=== PATIENT | female | born 1950 | race Hispanic/Latino ===

== ENCOUNTER → 2024-05-04 | Outpatient (CLI) | payer MEDICARE | END | disposition home or self-care (01) | LOC: SHCH 08:55 | PROVIDERS: ATTEND Internal Medicine Cardiovascular Disease | DX: I34.0 Nonrheumatic mitral (valve) insufficiency (principal); R06.02 Shortness of breath; I10 Essential (primary) hypertension | CPT/HCPCS: 93306; 93356 ==

== ENCOUNTER → 2024-06-23 | Outpatient (CLI) | payer MEDICARE, MEDICAID | END | disposition home or self-care (01) | LOC: SHCH 14:08 | PROVIDERS: ATTEND Internal Medicine Cardiovascular Disease | DX: I87.2 Venous insufficiency (chronic) (peripheral) (principal); I87.1 Compression of vein; I73.9 Peripheral vascular disease, unspecified | CPT/HCPCS: 93925; 93970 ==

== ENCOUNTER 2025-09-09 08:16 | Day surgery (SDC) | payer MEDICARE, MEDICAID ==
[2025-09-06 11:56] LABS: IMMATURE GRANULOCYTE ABSOLUTE 0.03 K/uL (0-1); NUCLEATED RED BLOOD CELLS 0.0 % (0.0-0.19); PLATELET COUNT (AUTO) 232 K/uL (130-400); RED BLOOD CELL COUNT(AUTO) 3.80 MIL/uL (4.00-5.50); RED CELL DISTRIBUTION WIDTH 12.1 % (11.0-15.5); WHITE BLOOD COUNT (AUTO) 6.2 K/uL (4.8-10.8)
[2025-09-06 12:05] LABS: CREATININE 0.6 mg/dL (0.5-1.0); GLOMERULAR FILTR. RATE CALC 95.0 mL/min (>90); GLUCOSE,RANDOM 112.0 mg/dL (70-105); SODIUM SERUM 140.0 mmol/L (136-145); UREA NITROGEN, BLOOD 12.0 mg/dL (7-18)
[2025-09-06 12:10] LABS: INR 0.96 (0.85-1.15)
--- NOTE | 2025-09-06 12:36 | EKG ---
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
[2025-09-06 12:45] VITALS: BP 122/59; PULSE 73; RESP 18; TEMP 97.5
--- NOTE | 2025-09-06 13:23 | HMCIMG ---
EXAM: CR Chest, 1 View. CLINICAL HISTORY: PRE OP COMPARISON: None provided. FINDINGS: LUNGS: The lungs show no infiltrate or other acute finding. PLEURAL SPACES: No pleural effusion or pneumothorax. MEDIASTINUM: The cardiomediastinal silhouette is within normal limits. BONES: No acute osseous abnormality. IMPRESSION: No acute cardiopulmonary pathology is evident. /Hunter
[~2025-09-09] VITALS: Ht 154.9 cm; Wt 53.7 kg
[~2025-09-09 08:16] MED LIST: AMLO-258 PO; ASPI-1197 PO; CALC-1038 PO; GABA-529 PO; LOSA50TA64 PO; MULT-1367 PO
[2025-09-09 08:28] VITALS: BP 144/68; PULSE 75; RESP 18; TEMP 97.9
[2025-09-09] MEDS: 0.9%NACL 1000ML 1,000 ML IV SCH (09:42)
[2025-09-09] MEDS ORDERED: HEParin-NS 1,000 UNIT/500 ML 1,000 ML IV ONE (11:12)
[2025-09-09] MEDS ORDERED: IODIXANOL 320 MG/ML 100 ML VIAL ONE (11:12)
[2025-09-09] MEDS ORDERED: LIDOCAINE HCL 400MG/20ML VIAL ONE (11:12)
[2025-09-09] MEDS ORDERED: MIDAZOLAM HCL 1 MG/ML 2ML VIAL ONE ×2 (11:25→11:49)
--- NOTE | 2025-09-09 12:08 | PRN ---
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 2% lidocaine used for local anesthesia. Micropuncture kit used again venous access and once verified what was seen modified Seldinger technique was utilized to place the eight Filipino sheath into the left common femoral vein. A venogram followed. Next a Glidewire was then placed in the IVC and an intravascular ultrasound catheter was then placed over wire and interrogation of the IVC, left common iliac external iliac and common femoral vein was performed. Neck sternotomy flush catheter was then used to direct the Glidewire to the right common femoral vein. Only pressure catheter then followed. Glidewire was removed. Venogram was then performed. Next Glidewire was placed back and Omni flush removed intravascular ultrasound catheter was then placed up and over and used to interrogate the right common femoral vein external iliac vein and common iliac vein. At end of case a Vascade was used for closure of venous a ccess site and no complications occurred. FINDINGS: [] Critical compression left common and external iliac vein at 69.9% and 50% % respectively Critical compression of right common iliac and external iliac vein at 55.6 and 52.7% respectively IMPRESSION: [] Critical bilateral common iliac and external iliac vein compression, asymptomatic PLAN: [] Try to obtain authorization for intervention to bilateral common iliac veins JEFFY RYDER MD Sep 09, 2025 12:08
[2025-09-09 12:25] VITALS: BP 136/74; PULSE 80; RESP 16; TEMP 96.9
[2025-09-09] MEDS ORDERED: GLUCAGON 1MG KIT 1 MG ML IM PRN (12:30)
[2025-09-09] MEDS ORDERED: DEXTROSE 50%-WATER 50 ML DISP.SYRIN IV PRN (12:30)
[2025-09-09 12:40] VITALS: BP 139/75; PULSE 87; RESP 13
[2025-09-09 12:55] VITALS: BP 130/67; PULSE 74; RESP 10
[2025-09-09 13:10] VITALS: BP 127/63; PULSE 79; RESP 14; TEMP 96.9
== END 2025-09-09 13:13 | disposition home or self-care (01) ==
LOC: DAH 08:16
PROVIDERS: ATTEND Internal Medicine Cardiovascular Disease
DX: I87.2 Venous insufficiency (chronic) (peripheral) (principal); I87.1 Compression of vein; I10 Essential (primary) hypertension; E78.00 Pure hypercholesterolemia, unspecified; J45.909 Unspecified asthma, uncomplicated; Z79.01 Long term (current) use of anticoagulants; Z79.899 Other long term (current) drug therapy; Z98.890 Other specified postprocedural states
CPT/HCPCS: 80048; 85025; 85610; 85730; 36415; 71045; 93005; 36012; 75822; 37252; 37253 ×5; 99156; 99157 ×2; 82948 ×3; A4223 ×3; C1769; C1894 ×2; C1760; C1753; J3010; J3490; J7030 ×2; J2250 ×2; J1644; Q9967; A4215; A4222; A4221; A4663; A4216; A4606